=== PATIENT | female | born 2000 | race Native Hawaiian/Other Pacific Islander ===

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

== ENCOUNTER 2022-04-02 08:57 | Emergency (ER) | payer OTHER ==
[~2022-04-02] VITALS: Ht 160 cm; Wt 81.6 kg
[2022-04-02 09:00] VITALS: BP 123/85
== END 2022-04-02 10:50 | disposition home or self-care (01) ==
LOC: ED 08:57
DX: J20.9 Acute bronchitis, unspecified (principal); F17.290 Nicotine dependence, other tobacco product, uncomplicated
CPT/HCPCS: 81025; 99283